=== PATIENT | male | born 1955 | race Caucasian/White ===

== ENCOUNTER → 2024-01-27 | Day surgery (SDC) | payer OTHER ==
[~2024-01-27] MED LIST: ACETAMINOPHEN 1000 MG/100 ML IV PRN; AMLODIPINE BESY10 MG PO; ASPIRIN 325 MG TAB PO SCH; ASPIRIN81 MG PO; CELECOXIB 100 MG CAP PO SCH; DIPHENHYDRAMINE HCL INJ 50 MG/ML VIAL IV PRN; DOCUSATE SODIUM 100 MG CAP PO PRN; EPINEPHRINE HCL 1:1000 1ML 1 MG/ML AMP ONE; FENTANYL CITRATE/PF 100MCG/2 ML INJ ONE; HYDROCODONE/APAP 7.5MG-325MG 1 EA TAB PO PRN; LIDOCAINE HCL 2% LOCAL INJ 5 ML SDV VIAL INJ ONE; LISINOPRIL10 MG PO; MIDAZOLAM HCL 2 MG/2 ML VIAL ONE; MOTRIN200 MG PO; ONDANSETRON HCL INJ 2MG/ML 2ML 2 MG/ML VIAL IV PRN; ONDANSETRON HCL INJ 2MG/ML 2ML 2 MG/ML VIAL ONE; PROPOFOL IV EMULSION 10 MG/ML 20 ML VIAL ONE; ROPIVACAINE 0.5% 5 MG/ML 30 ML SDV ONE; ROPIVACAINE 246.25 MG, EPINEPHRINE HCL 1:1000 1ML 0.5 MG, CLONIDINE HCL 0.08 MG, KETORO... INJ ONE; SEVOFLURANE INHAL SOLN 250 ML PEN BTL ONE; SODIUM CHLORIDE 0.9% 1000ML 1,000 ML IV SCH; SODIUM CHLORIDE 0.9% 500ML 500 ML ONE; TRANEXAMIC ACID 20 ML ONE; Vancomycin IV 500 MG ONE; [UNRECOGNIZED DRUG - OTHER] PO
[2024-01-27] MEDS: LACTATED RINGER'S 1,000 ML ONE (05:42)
[2024-01-27] MEDS: DEXAMETHASONE SOD PHOS 10 MG/1 ML VIAL ONE (05:42)
[2024-01-27] MEDS: CELECOXIB 200 MG CAP ONE (05:43)
[2024-01-27] MEDS: GABAPENTIN 300 MG CAP ONE (05:43)
[2024-01-27] MEDS: CEFAZOLIN SODIUM 2 GM ONE (05:43)
[2024-01-27 09:35] VITALS: TEMP 97.6
[2024-01-27] MEDS: HYDROCODONE/APAP 5MG-325MG TAB PO PRN (10:26)
[2024-01-27 13:00] VITALS: BP 117/76; PULSE 81; RESP 16; O2SAT 99
== END | disposition home health service (06) ==
LOC: OR 05:25
PROVIDERS: ATTEND Specialist
DX: M17.11 Unilateral primary osteoarthritis, right knee (principal); M16.11 Unilateral primary osteoarthritis, right hip; Z71.82 Exercise counseling; Z71.3 Dietary counseling and surveillance; I10 Essential (primary) hypertension; Z01.812 Encounter for preprocedural laboratory examination; Z79.1 Long term (current) use of non-steroidal anti-inflammatories (NSAID); Z79.899 Other long term (current) drug therapy
CPT/HCPCS: 27447; 73560; 86850; 86900; 97110; 97116 ×2; 97161; 97530; C1713 ×2; C1776 ×4; J0171; J0690; J1100; J1885; J2250; J2795; J3010; J3370; J7040; J7121; J2003; J2405